=== PATIENT | female | born 1955 | race Caucasian/White ===

== ENCOUNTER 2024-12-20 16:55 | Emergency (ER) | payer MEDICARE, OTHER ==
[~2024-12-20] VITALS: Ht 170.2 cm; Wt 60.0 kg
[2024-12-20 17:23] LABS: BASOPHILS 0.7 % (0.1-1.2); EOSINOPHILS 1.1 % (0.7-5.8); LYMPHOCYTES 7.6 % (19.3-51.7); MCH 30.2 PG (25.6-32.2); MCHC 32.9 g/dL (32.2-35.5); MCV 91.7 fL (79.4-94.8); MONOCYTES 4.2 % (4.7-12.5); NEUTROPHILS 86.3 % (34.0-71.1); RBC 4.44 M/uL (3.93-5.22)
[2024-12-20] MEDS ORDERED: HYDROmorphone HCL 1 MG/ML SYR IV PRN (17:30)
[2024-12-20] MEDS ORDERED: SODIUM CHLORIDE 0.9% 1,000 ML IV ONE (17:30)
[2024-12-20 17:41] LABS: ALT (SGPT) 281.0 U/L (14-59); AST (SGOT) 529.0 U/L (15-37); GLOMERULAR FILTRATION RATE,EST 37.0 mL/min (>60); PROTEIN, TOTAL 7.7 g/dL (6.4-8.2); UREA NITROGEN 37.0 mg/dL (7-18)
[2024-12-20 19:10] LABS: BLOOD/HGB, URINE SMALL (Negative); KETONE, URINE NEGATIVE (Negative); LEUK ESTERASE, URINE NEGATIVE (negative); NITRITE, URINE NEGATIVE (negative)
[2024-12-20 19:20] LABS: BACTERIA, URINE 2+ /hpf (negative); CASTS, URINE NONE SEEN \\lpf; CRYSTALS, URINE CALCIUM OXALATE 1+ (0-1+); EPITHELIAL CELLS, URINE SQUAMOUS 1+ /lpf (0-1+); REFLEX CULTURE, URINE Yes (No)
[2024-12-20] MEDS ORDERED: LOPERAMIDE HCL 2 MG CAP PO ONE (19:30)
[2024-12-20] MEDS ORDERED: ONDANSETRON 4 MG HOME.PACK SL ONE (19:30)
[2024-12-20 19:44] VITALS: BP 118/68
--- NOTE | 2024-12-20 21:22 | EKG ---
[facility] [address] [facility] [place] [address] Signed Normal sinus rhythm Normal ECG No previous ECGs available Confirmed by Noy Mesa MD () on 12/20/2024 9:22:26 PM Electronically Signed By: NOY MESA MD 12/20/[id number] PATIENT NAME: MATHEW CURTIS Electrocardiogram DATE OF : 53 PHYSICIAN: NOY MESA MD REPORT #: [id number] REPORT IS CONFIDENTIAL AND NOT TO BE RELEASED WITHOUT AUTHORIZATION
== END 2024-12-20 19:44 | disposition home or self-care (01) ==
LOC: ED 16:55
PROVIDERS: Emergency Medicine
DX: R10.13 Epigastric pain (principal); R74.01 Elevation of levels of liver transaminase levels; Z88.1 Allergy status to other antibiotic agents
CPT/HCPCS: 36415; 74177; 80053; 81001; 83690; 83735; 84484; 85025; 87088; 93005; 93010; 96374; 96375; 99284-25; A9270; J1171; J2405; J7030; Q9967